=== PATIENT | female | born 1985 | race Caucasian/White ===

== ENCOUNTER 2021-11-30 10:46 | Emergency (ER) | payer OTHER ==
[~2021-11-30] VITALS: Ht 162.6 cm; Wt 68.0 kg
== END 2021-11-30 14:03 | disposition home or self-care (01) ==
LOC: ER 10:46
DX: S20.221A Contusion of right back wall of thorax, initial encounter (principal); S20.211A Contusion of right front wall of thorax, initial encounter; S30.0XXA Contusion of lower back and pelvis, initial encounter; W16.612A Jumping or diving into natural body of water striking water surface causing other injury, initial encounter; Y93.89 Activity, other specified; Y92.828 Other wilderness area as the place of occurrence of the external cause; S39.012A Strain of muscle, fascia and tendon of lower back, initial encounter; S29.019A Strain of muscle and tendon of unspecified wall of thorax, initial encounter; M53.3 Sacrococcygeal disorders, not elsewhere classified; Z88.0 Allergy status to penicillin; Z88.1 Allergy status to other antibiotic agents